=== PATIENT | female | born 1935 | race Caucasian/White ===

== ENCOUNTER → 2019-01-21 | Outpatient (RCR) | payer MEDICARE, OTHER ==
[~2019-01-21] MED LIST: ASPIRIN325 MG PO; ATENOLOL25 MG PO; CEPHALEXIN500 M1 PO; FERROUS SULFAT325 MG PO; FLONASE16 GM NS; FOLIC ACID1 MG PO; LORATADINE10 M1 PO; LORTAB 7.5-5001 EACH PO; LOVENOX40 MG/0.4 SC; ZESTRIL10 MG PO; [UNRECOGNIZED DRUG - OTHER] PO; [UNRECOGNIZED DRUG - OTHER] PO
== END ==
LOC: PT 10:59
PROVIDERS: ATTEND Internal Medicine
DX: R42 Dizziness and giddiness (principal); M81.0 Age-related osteoporosis without current pathological fracture; M19.91 Primary osteoarthritis, unspecified site; Z91.81 History of falling

== ENCOUNTER 2019-02-19 11:00 | Outpatient (RCR) | payer MEDICARE, OTHER | END 2019-02-21 | LOC: PT 11:00 | PROVIDERS: ATTEND Internal Medicine | DX: R42 Dizziness and giddiness (principal); M81.0 Age-related osteoporosis without current pathological fracture; M19.91 Primary osteoarthritis, unspecified site; Z91.81 History of falling | CPT/HCPCS: 97139 ==

== ENCOUNTER 2019-03-19 10:59 | Outpatient (RCR) | payer MEDICARE, OTHER | END 2019-03-23 | LOC: PT 10:59 | PROVIDERS: ATTEND Internal Medicine | DX: R42 Dizziness and giddiness (principal); M81.0 Age-related osteoporosis without current pathological fracture; M25.511 Pain in right shoulder; M13.811 Other specified arthritis, right shoulder; Z91.81 History of falling; M62.81 Muscle weakness (generalized); R26.9 Unspecified abnormalities of gait and mobility | CPT/HCPCS: 97139 ==